=== PATIENT | male | born 1990 | race African-American/Black ===

== ENCOUNTER 2018-09-24 09:41 | Emergency (ER) | payer OTHER ==
[~2018-09-24] VITALS: Ht 185.4 cm; Wt 70.8 kg
[2018-09-24] MEDS ORDERED: PANTOPRAZOLE 40 MG/10 ML VIAL IV STA (10:02)
[2018-09-24] MEDS ORDERED: SODIUM CHLORIDE 0.9% 1,000 ML IVB ONE (10:02)
[2018-09-24] MEDS ORDERED: PROCHLORPERAZINE EDISYLATE 5 MG/ML 2ML VIAL IV ONE (10:15)
[2018-09-24] MEDS ORDERED: MORPHINE SULFATE 4 MG/ML SYR/VIAL IV ONE (10:15)
[2018-09-24 10:35] VITALS: BP 159/74
[2018-09-24 10:37] LABS: Albumin 4.4 g/dL (3.4-5.0); BUN/Creatinine Ratio 10.1; Calcium 9.1 mg/dL (8.5-10.1); Potassium 3.2 mmol/L (3.5-5.1)
[2018-09-24 10:40] LABS: Bilirubin, Total 0.4 mg/dL (0.2-1.0); Total Protein 8.1 g/dL (6.4-8.2)
[2018-09-24 11:18] LABS: Basophils # (auto) 0 uL; Basophils % (auto) 0.1 % (0.0-2.0); Eosinophils # (auto) 0 uL; Hematocrit 41.2 % (41.0-53.0); Hemoglobin 13.4 g/dL (13.5-17.5); Lymphocytes # (auto) 0.3 uL; Lymphocytes % (auto) 2.5 % (10.0-50.0); Mean Corpuscular Hemoglobin 27.5 pg (28.0-32.0); Mean Corpuscular Hgb Conc. 32.5 g/dL (32.0-36.0); Mean Corpuscular Volume 84.6 fL (80.0-100.0); Monocytes # (auto) 0.4 uL; Monocytes % (auto) 4.2 % (0.0-12.0); Neutrophils # (auto) 9.7 uL; Neutrophils % (auto) 93.2 % (37.0-80.0); Nucleated Red Blood Cells % 0.4 %; Platelet Count (auto) 229 10^3/uL (140-450); Red Blood Cells 4.87 10^6/uL (4.5-5.90); Red Cell Distribution Width 14.4 % (11.8-14.3); White Blood Cell 10.5 10^3/uL (4.4-10.8)
== END 2018-09-24 11:26 | disposition home or self-care (01) ==
LOC: ER 09:41
DX: F12.188 Cannabis abuse with other cannabis-induced disorder (principal); R10.12 Left upper quadrant pain; F12.10 Cannabis abuse, uncomplicated; Z87.891 Personal history of nicotine dependence
CPT/HCPCS: 36415; 74176; 80053; 82150; 83690; 85025; 94761; 96361; 96374; 96375; 99284; C9113; J0780; J2270; J7030